=== PATIENT | female | born 1945 | race Two or more races ===

== ENCOUNTER 2017-11-28 12:26 | Day surgery (SDC) | payer MEDICARE ==
[2017-11-28] MEDS ORDERED: LIPI20TA PO (13:55)
[2017-11-28] MEDS ORDERED: LISI2.5T3 PO (13:55)
[2017-11-28] MEDS ORDERED: FLEC100T PO (13:55)
[2017-11-28] MEDS ORDERED: METF500T PO (13:55)
[2017-11-28] MEDS ORDERED: SITA1TAB2 PO (13:55)
[2017-11-28] MEDS ORDERED: XARE20TA PO (13:55)
[2017-11-28] MEDS ORDERED: ASPI-516 CHEW (13:55)
[2017-11-28] MEDS ORDERED: METOPROLOL TARTRATE 25 MG TAB PO PRN (14:00)
[2017-11-28] MEDS ORDERED: POVIDONE IODINE 5% (ANTISEPSIS KIT) 4 APPLICATIONS EACH NARE PRN (14:00)
[2017-11-28] MEDS ORDERED: SODIUM CHLORID 0.9% 500 ML IV PRN (14:00)
[2017-11-28] MEDS ORDERED: LACTATED RINGER'S 1000 ML IV PRN (14:00)
[2017-11-28] MEDS ORDERED: CHLORHEXIDINE GLUCONATE 2 % 1 PACK (2 CLOTHS) TOPICAL PRN (14:00)
[2017-11-28] MEDS ORDERED: PROPOFOL 200 MG/20 ML AMP ONE (15:35)
--- NOTE | 2017-11-28 15:57 | MP ---
cc: Val Major MD DATE OF OPERATION: 11/28/2017 PROCEDURE: Cardioversion. INDICATION: Atrial fibrillation. CONSENT: Fully informed consent was obtained prior to procedure. Risks of , bleeding, perforation, aspiration, cardiac arrest, foreseen and unforeseen complications reviewed. The patient fully appeared to understand. PROCEDURE DETAILS: The patient was draped and prepped in the usual manner. Anesthesia was given as per the anesthesia department. She received a 200 joule synchronized shock. CONCLUSION: Successful cardioversion from atrial fibrillation to sinus rhythm. Val Major MD [facility] , 03:23 PM , 03:55 PM
--- NOTE | 2017-11-29 07:47 | EKG ---
Date Performed: 11/28/2017 Time Performed: 12:58:36 PTAGE: 72 years EKG: Probable atrial flutter with controlled response Left bundle branch block Nonspecific ST an d T wave abnormalities Abnormal ECG NO PREVIOUS TRACING DOCTOR: Sam Evans Interpretating Date/Time 11/29/2017 07:47:00
== END 2017-11-28 16:39 | disposition home or self-care (01) ==
LOC: HDOC 12:26 → HDIC 12:27 → HDOC 16:39
PROVIDERS: ATTEND Internal Medicine Cardiovascular Disease
DX: I48.91 Unspecified atrial fibrillation (principal); I48.92 Unspecified atrial flutter; I49.3 Ventricular premature depolarization; I10 Essential (primary) hypertension; E11.9 Type 2 diabetes mellitus without complications; E78.5 Hyperlipidemia, unspecified; I73.9 Peripheral vascular disease, unspecified; I34.0 Nonrheumatic mitral (valve) insufficiency; R25.1 Tremor, unspecified; Z79.01 Long term (current) use of anticoagulants; Z79.84 Long term (current) use of oral hypoglycemic drugs; Z01.810 Encounter for preprocedural cardiovascular examination
CPT/HCPCS: 92960; 93005